=== PATIENT | female | born 1980 | race Native Hawaiian/Other Pacific Islander ===

== ENCOUNTER 2022-03-01 11:14 | Outpatient (CLI) | payer BC ==
[2022-03-01 11:58] LABS: PLATELET COUNT 278 K/uL (152-353)
[2022-03-01 12:29] LABS: POTASSIUM 3.7 mmol/L (3.6-5.2)
== END 2022-03-01 21:30 | disposition home or self-care (01) ==
LOC: LABW 11:14
PROVIDERS: ATTEND Nurse Practitioner Family
DX: R53.83 Other fatigue (principal); R07.89 Other chest pain; R05.8 Other specified cough; R63.4 Abnormal weight loss; R63.0 Anorexia; R19.4 Change in bowel habit
CPT/HCPCS: 36415; 80053; 80061; 81000; 82306; 82553; 82607; 82728; 82746; 83036; 83540; 83550; 83880; 84439; 84443; 84484; 85027; 93005

== ENCOUNTER 2022-03-21 10:53 | Outpatient (CLI) | payer BC | END 2022-03-21 22:08 | disposition home or self-care (01) | LOC: RAD 10:53 | PROVIDERS: ATTEND Nurse Practitioner Family | DX: R53.83 Other fatigue (principal); R07.89 Other chest pain; R05.8 Other specified cough; R63.4 Abnormal weight loss; R63.0 Anorexia; R19.4 Change in bowel habit; D64.9 Anemia, unspecified; R10.9 Unspecified abdominal pain; J06.9 Acute upper respiratory infection, unspecified; Z76.89 Persons encountering health services in other specified circumstances ==

== ENCOUNTER 2022-04-19 11:05 | Outpatient (CLI) | payer BC | END 2022-04-19 20:33 | disposition home or self-care (01) | LOC: RESP 11:05 | PROVIDERS: ATTEND Specialist | DX: R07.89 Other chest pain (principal); E78.2 Mixed hyperlipidemia; Z72.0 Tobacco use; R53.83 Other fatigue; R06.02 Shortness of breath ==

== ENCOUNTER 2022-04-23 10:51 | Outpatient (CLI) | payer BC | END 2022-04-23 19:59 | disposition home or self-care (01) | LOC: RESP 10:51 | PROVIDERS: ATTEND Specialist | DX: R07.89 Other chest pain (principal); E78.2 Mixed hyperlipidemia; Z72.0 Tobacco use; R53.83 Other fatigue; R06.02 Shortness of breath ==

== ENCOUNTER 2022-06-24 14:53 | Outpatient (CLI) | payer BC | END 2022-06-24 19:06 | disposition home or self-care (01) | LOC: MAMMO 14:53 | PROVIDERS: ATTEND Obstetrics & Gynecology | DX: Z12.31 Encounter for screening mammogram for malignant neoplasm of breast (principal) ==

== ENCOUNTER 2022-07-22 11:55 | Outpatient (CLI) | payer BC | END 2022-07-22 19:08 | disposition home or self-care (01) | LOC: MAMMO 11:55 | PROVIDERS: ATTEND Obstetrics & Gynecology | DX: R92.2 Inconclusive mammogram (principal) ==

== ENCOUNTER 2022-12-16 16:17 | Outpatient (CLI) | payer BC ==
[2022-12-16 16:42] LABS: PLATELET COUNT 315 K/uL (152-353)
[2022-12-16 16:53] LABS: POTASSIUM 3.5 mmol/L (3.6-5.2)
== END 2022-12-16 20:52 | disposition home or self-care (01) ==
LOC: LABW 16:17
PROVIDERS: ATTEND Nurse Practitioner Family
DX: R21 Rash and other nonspecific skin eruption (principal)
CPT/HCPCS: 36415; 80053; 80061; 80074; 85027; 86480